=== PATIENT | female | born 1980 ===

== ENCOUNTER 2016-08-18 09:10 | Inpatient (IN) | payer OTHER, SELFPAY ==
[2016-08-18 09:45] VITALS: BMI 25.4
[2016-08-18] MEDS ORDERED: Sodium Chloride 0.9% 1,000 ML IV STA (09:45)
[2016-08-18 10:01] LABS: BASO % 0.5 % (0.0-2.0); EOS # 0.2 K/uL (0.0-0.7); EOS % 2.2 % (0.0-4.0); HEMATOCRIT 34.6 % (34.0-47.0); LYMPH # 3.7 K/uL (1.0-4.3); LYMPH % 37.7 % (20.0-40.0); MEAN CELL VOLUME 86.3 fl (81.0-99.0); MEAN CORPUSCULAR HGB CONC 33.7 g/dL (33.0-37.0); MEAN PLATELET VOLUME 8.1 fl (7.2-11.7); MONO # 0.8 K/uL (0.0-0.8); MONO % 8.4 % (0.0-10.0); NEUT % 51.2 % (50.0-75.0); NRBC % 0.2 % (0.0-0.0); RED CELL DISTRIBUTION WIDTH 15.8 % (11.5-14.5); WHITE BLOOD COUNT 9.7 K/uL (4.8-10.8)
[2016-08-18 10:19] LABS: ALB/GLOB RATIO 1.3 (1.0-2.1); ALKALINE PHOSPHATASE 53 U/L (38-126); ALT/SGPT 32 U/L (9-52); AST/SGOT 24 U/L (14-36); BILIRUBIN,TOTAL 0.8 mg/dl (0.2-1.3); BLOOD UREA NITROGEN 15 mg/dl (7-17); CARBON DIOXIDE 25 mmol/L (22-30); CHLORIDE 103 mmol/L (98-107); GFR AFRICAN-AMERICAN > 60; GLUCOSE,RANDOM 86 mg/dL (65-105); LIPASE 103 U/L (23-300); POTASSIUM 4.2 MMOL/L (3.6-5.0); SODIUM 138 mmol/l (132-148); TOTAL PROTEIN 7.9 G/DL (6.3-8.2)
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
[2016-08-18 10:34] LABS: RBC URINE 71 /hpf (0-3); URINE BACTERIA RARE (<OCC); URINE BILIRUBIN SMALL (NEGATIVE); URINE BLOOD MODERATE (NEGATIVE); URINE COLOR AMBER (YELLOW); URINE GLUCOSE (UA) NEG (Normal); URINE KETONE NEGATIVE (NEGATIVE); URINE LEUKOCYTE ESTERASE NEG Leu/uL (Negative); URINE PROTEIN 100 mg/dL (NEGATIVE); URINE UROBILINOGEN 0.2-1.0 mg/dL (0.2-1.0); WBC URINE 1 /hpf (0-5)
[2016-08-18] MEDS ORDERED: Iohexol 300 100 ML IJ ONE (12:02)
[2016-08-18] MEDS ORDERED: Sodium Chloride 0.9% 50 ML IV ONE (12:02)
--- NOTE | 2016-08-18 13:32 | CT ---
PROCEDURE: CT Abdomen and Pelvis with contrast HISTORY: RLQ pain By history, negative test (concurrent with this examination). COMPARISON: 01/24/2016. CT abdomen and pelvis. 10/31/2015 pelvic ultrasound TECHNIQUE: Contrast dose: Possible, today. Thank Radiation dose: Total exam DLP = mGy-cm. This CT exam was performed using one or more of the following dose reduction techniques: Automated exposure control, adjustment of the mA and/or kV according to patient size, and/or use of iterative reconstruction technique. FINDINGS: LOWER THORAX: Platelike atelectasis at both bases. Otherwise, unremarkable. LIVER: Unremarkable. No gross lesion or ductal dilatation. GALLBLADDER AND BILE DUCTS: Unremarkable. PANCREAS: Unremarkable. No gross lesion or ductal dilatation. SPLEEN: Unremarkable. ADRENALS: Unremarkable. No mass. KIDNEYS AND URETERS: Unremarkable. No hydronephrosis. No solid mass. VASCULATURE: Unremarkable. No aortic aneurysm. BOWEL: Constipation without fecal impaction or obstruction. Similar findings identified on the prior CT scan. APPENDIX: Normal appendix. PERITONEUM: Unremarkable. No free fluid. No free air. LYMPH NODES: Unremarkable. No enlarged lymph nodes. BLADDER: Unremarkable. REPRODUCTIVE: Contrast-enhancing characteristics associated with deformity of right adnexal cyst likely recently ruptured 1.5 cm cysts. Trace free fluid identified in the pelvis/cul de sac. BONES: No acute fracture. OTHER FINDINGS: None. IMPRESSION: No acute findings related to/accounting for the clinical presentation. No evidence of bowel obstruction, appendicitis, colitis or enteritis. Incidental finding(s):Findings suggestive recently ruptured right ovarian cyst. Save
--- NOTE | 2016-08-18 15:37 | US ---
HISTORY: RLQ pain ruptured cyst r/o torsion LMP 07/25/2016. COMPARISON: 10/31/2015 pelvic ultrasound. August 18, 2016. CT abdomen and pelvis. TECHNIQUE: FINDINGS: UTERUS: Measures cm. Normal in size and appearance. No fibroid or other mass lesion seen. ENDOMETRIUM: Measures 12.5 mm in diameter. Endometrial hypertrophy without focal abnormality. CERVIX: No cervical abnormality identified. RIGHT OVARY: Measures 2.8 x 3.9 cm. No solid mass. Normal flow. Multiple subcentimeter follicles. LEFT OVARY: Measures 2.6 x 2.9 cm. No solid mass. Normal flow. Multiple subcentimeter follicles. FREE FLUID: No significant free fluid noted. OTHER FINDINGS: None. IMPRESSION: Negative study for adnexal torsion. No acute/ significant findings identified. Price the concurrent CT is reviewed again the presence of these findings. No new-additional findings identified.
[2016-08-18] MEDS ORDERED: Oxycodone/Acetaminophen 5/325 mg Tab PO STA (15:44)
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
--- NOTE | 2016-08-18 17:27 | CP.PCM.HP ---
History of Present Illness - History of Present Illness History of Present Illness: Hx taken from patient PMD: Dr Sandeep Barreto [facility] 36 y/o F with PMhx of intermittent asthma presented to ED for acute onset abd pain since 3am today. Pain is diffuse but more severe in the RLQ, 6/10 now(10/ 10 before), associated with nausea and subjective fever but not vomiting, diarrhea, palpitations, SOB or CP. Patient also reports Hx of irregular bleeding with out menstrual crampings but this time she defines the pain as crampy. LMP sometimes in July she dosnt recall the date. Also c/o of urinary symptoms in the past few day consisting of frequency but not dysuria, denies hematuria. Patient came to ED 2 days ago c/o sore throat and she was prescribed Amoxicillin which she has been taking. ED course: CBC/BMP WNL CT abd/pelvis: Recently ruptured right ovarian cyst. Thickened R /Urether wall, no stones(please see full report) Transvag US: Neg for torsion. Confirmed CT findings(Please see full report) Sx Consult Morphine IVx3 UA: RBC high, neg for nitrates, WBC 1 Patient decided to admit to hosp for observation and further evaluation Allergies: NKDA Meds: Symbicort(Not in use) PMHx: Asthma, H.Pylori ObHx: . Urine test 2 days ago in ED negative GynHx: irregular periods, LMP in July. SxhX: Denies Present on Admission - Present on Admission Any Indicators Present on Admission: No Review of Systems - Constitutional Constitutional: As Per HPI - Cardiovascular Cardiovascular: absent: Chest Pain, Dyspnea, Palpitations - Respiratory Respiratory: absent: Cough, Wheezing - Gastrointestinal Gastrointestinal: Abdominal Pain, Cramping, Nausea. absent: Diarrhea, Vomiting - Menstruation Menstruation: Other Additional comments: Irregular periods - Musculoskeletal Musculoskeletal: absent: Arthralgias Past Patient History - Past Medical History & Family History Past Medical History?: Yes - Past Social History Alcohol: None - CARDIAC Hx Cardiac Disorders: No - PULMONARY Hx Asthma: Yes (02/13/2016) - NEUROLOGICAL Hx Neurological Disorder: No - HEENT Hx HEENT Problems: No - RENAL Hx Chronic Kidney Disease: No - ENDOCRINE/METABOLIC Hx Endocrine Disorders: No - HEMATOLOGICAL/ONCOLOGICAL Hx Blood Disorders: No - INTEGUMENTARY Hx Dermatological Problems: No - MUSCULOSKELETAL/RHEUMATOLOGICAL Hx Musculoskeletal Disorders: No - GASTROINTESTINAL Hx Gastrointestinal Disorders: No - GENITOURINARY/GYNECOLOGICAL Hx Genitourinary Disorders: No - PSYCHIATRIC Hx Psychophysiologic Disorder: No Hx Emotional Abuse: No Hx Physical Abuse: No Hx Substance Use: No - SURGICAL HISTORY Hx Surgeries: Yes Other/Comment: LAPAROSCOPY AND FACIAL SURGERY IN 1997 - ANESTHESIA Hx Anesthesia: Yes Hx Anesthesia Reactions: No Hx Malignant Hyperthermia: No Meds Allergies/Adverse Reactions: Allergies Allergy/AdvReac Type Severity Reaction Status Date / Time No Known Allergies Allergy Verified 04/11/13 16:24 Physical Exam - Constitutional Appears: Non-toxic, No Acute Distress - Head Exam Head Exam: ATRAUMATIC - Eye Exam Eye Exam: PERRL - ENT Exam ENT Exam: Mucous Membranes Moist - Respiratory Exam Respiratory Exam: Clear to Auscultation Bilateral, NORMAL BREATHING PATTERN. absent: Rales, Wheezes - Cardiovascular Exam Cardiovascular Exam: REGULAR RHYTHM, +S1, +S2. absent: Gallop, Systolic Murmur - GI/Abdominal Exam GI & Abdominal Exam: Normal Bowel Sounds, Soft, Tenderness (diffuse mild tenderness. moderate tenderness in RLQ). absent: Distended, Guarding, Rebound - Extremities Exam Extremities exam: Positive for: normal inspection - Back Exam Back exam: NORMAL INSPECTION. absent: CVA tenderness (L), CVA tenderness (R) - Neurological Exam Neurological exam: Alert, Normal Gait, Oriented x3 - Psychiatric Exam Psychiatric exam: Normal Affect, Normal Mood - Skin Skin Exam: Normal Color, Warm Results - Vital Signs Recent Vital Signs: Last Vital Signs Temp Pulse Resp BP Pulse Ox 98 08/18/16 16:06 - Labs Result Diagrams: 08/18/16 09:56 08/18/16 09:56 Assessment & Plan - Assessment and Plan (Free Text) Assessment: 36 y/o F with PMhx of intermittent asthma and irregular menstrual periods admitted for sudden onset RLQ pain -Acute abdominal pain(most likely ruptured ovarian cyst vs ureter stone) Admit to med-sx CT abd/pelvis: Recently ruptured right ovarian cyst. Thickened R/Ureter wall, no stones seen TV US: Confirmed findings on CT. Negative for torsion Monitor VS WBC WNL, Afebrile F/U repeat CBC tomorrow UCx, Gc/Chl ordered Sx consult: Prob ovarian cyst: Recs FRAME BANDER consult, stool softeners, Toradol for pain control. Stamp Press Operator consult(Dr Tay) will f/u recs NPO for now untill evaluated by Stamp Press Operator BetaHCG, Gc/Chl TMA, UCx ordered Toradol, Percocet, Morphine PRN for pain contro -Intermittent Asthma Albuterol HFA 2 puff Q6h PRN for SOB -Prophylactic measures DVT: SCDs for now
[2016-08-18] MEDS ORDERED: Albuterol HFA 90 mcg/actuation (8 g) INH PRN (18:23)
[2016-08-18] MEDS ORDERED: Oxycodone/Acetaminophen 5/325 mg Tab PO PRN (18:27)
[2016-08-18] MEDS ORDERED: Docusate-Senna 50 mg-8.6 mg Tab PO PRN (18:28)
[2016-08-18] MEDS: Sodium Chloride 0.9% 1,000 ML IV SCH (20:39)
[2016-08-18 22:09] LABS: HEMATOCRIT 31.8 % (34.0-47.0); MEAN CELL VOLUME 87.8 fl (81.0-99.0); MEAN CORPUSCULAR HEMOGLOBIN 28.7 pg (27.0-31.0); MEAN CORPUSCULAR HGB CONC 32.7 g/dL (33.0-37.0); RED CELL DISTRIBUTION WIDTH 15.7 % (11.5-14.5); WHITE BLOOD COUNT 10.1 K/uL (4.8-10.8)
[2016-08-18] MEDS ORDERED: Chlorhexidine Gluconate 1 APPL/PKT TP ONE (23:12)
--- NOTE | 2016-08-18 23:59 | CP.PCM.CON ---
History of Present Illness - History of Present Illness History of Present Illness: INTELLIGENCE INTERN Consult note 36 yo , f, , ect preg x 1 about 20 years ago, PMhx/o Asthma c/o generalized abd pain started today in the morning 6 am, cramp type, intermittent , 10/10 in intensity, radiated to RLQ, associated with nausea w/o vomiting. Patient denies fever, vomiting, diarrhea, dysuria, VB, Vaginal discharge, trauma, chest pain, SOB, odd food, . She reports that was seen in ED 2 days ago for sore throat and was discharged with amoxicillin antibiotic. Patient reports had similar pain 1 year ago, but radiated to left side. PMhx: Asthma Allergies: NKDA Meds: Symbicort(Not in use) PSurgHx: left side ectopic x 1 (20 years ago), facial surgery PFHx: Father alive colon cancer with mets to liver, Mother alive HTN PObHx: ecto preg x 1 .Urine test 2 days ago in ED negative GynHx:menarche at 11 age. LMP: july 24-, regular x 4 days SexHx: Active monogamous with , using condom. SHx: + ETOH occs, neg rect drugs, cig Review of Systems - Gastrointestinal Gastrointestinal: Abdominal Pain, Nausea. absent: Diarrhea, Vomiting - Genitourinary Genitourinary: As Per HPI - Reproductive: Female Reproductive:Female: As Per HPI - Musculoskeletal Musculoskeletal: As Per HPI Past Patient History - Past Medical History & Family History Past Medical History?: Yes - Past Social History Smoking Status: Never Smoked - CARDIAC Hx Cardiac Disorders: No - PULMONARY Hx Asthma: Yes (02/13/2016) - NEUROLOGICAL Hx Neurological Disorder: No - HEENT Hx HEENT Problems: No - RENAL Hx Chronic Kidney Disease: No - ENDOCRINE/METABOLIC Hx Endocrine Disorders: No - HEMATOLOGICAL/ONCOLOGICAL Hx Blood Disorders: No - INTEGUMENTARY Hx Dermatological Problems: No - MUSCULOSKELETAL/RHEUMATOLOGICAL Hx Falls: No - GASTROINTESTINAL Hx Gastrointestinal Disorders: No - GENITOURINARY/GYNECOLOGICAL Hx Genitourinary Disorders: No - PSYCHIATRIC Hx Substance Use: No - SURGICAL HISTORY Hx Surgeries: Yes Other/Comment: LAPAROSCOPY AND FACIAL SURGERY IN 1997 - ANESTHESIA Hx Anesthesia: Yes Hx Anesthesia Reactions: No Hx Malignant Hyperthermia: No Meds Allergies/Adverse Reactions: Allergies Allergy/AdvReac Type Severity Reaction Status Date / Time No Known Allergies Allergy Verified 04/11/13 16:24 - Medications Medications: Current Medications Albuterol (Ventolin Hfa 90 Mcg/Actuation (8 G)) 2 puff INH RQ6 PRN PRN Reason: Shortness of Breath Sodium Chloride (Sodium Chloride 0.9%) 1,000 mls @ 125 mls/hr IV .Q8H MARIA ESTHER Stop: 08/19/16 18:21 Last Admin: 08/18/16 20:39 Dose: 125 mls/hr Ketorolac Tromethamine (Toradol) 15 mg IVP Q6 PRN PRN Reason: Pain, Mild (1-3) Morphine Sulfate (Morphine) 2 mg IVP Q6 PRN PRN Reason: Pain, severe (8-10) Last Admin: 08/18/16 20:38 Dose: 2 mg Ondansetron HCl (Zofran Inj) 4 mg IVP Q6 PRN PRN Reason: Nausea/Vomiting Oxycodone/Acetaminophen (Percocet 5/325 Mg Tab) 2 tab PO Q6 PRN PRN Reason: Pain, moderate (4-7) Stop: 08/21/16 18:28 Senna/Docusate Sodium (Senokot S 50 Mg-8.6 Mg) 1 tab PO HS PRN PRN Reason: Constipation Physical Exam - Constitutional Appears: Non-toxic, No Acute Distress - Head Exam Head Exam: ATRAUMATIC, NORMOCEPHALIC - Eye Exam Eye Exam: Normal appearance - Neck Exam Neck exam: Positive for: Normal Inspection - Respiratory Exam Respiratory Exam: Clear to Auscultation Bilateral. absent: Rales, Rhonchi, Wheezes - Cardiovascular Exam Cardiovascular Exam: REGULAR RHYTHM, +S1, +S2 - GI/Abdominal Exam GI & Abdominal Exam: Normal Bowel Sounds, Tenderness. absent: Guarding, Rebound Additional comments: mild TD suprapubic right side. no guarding, no rebound TD. - Exam Exam: NORMAL INSPECTION Bimanual exam: absent: Adenexal Mass, Cervical Motion Tendernes, Uterine Enlargement, Uterine Tenderness Additional comments: Mild TD to right Adnexal, no swelling, no mass - Extremities Exam Extremities exam: Positive for: normal inspection. Negative for: pedal edema, tenderness - Back Exam Back exam: NORMAL INSPECTION. absent: paraspinal tenderness - Neurological Exam Neurological exam: Alert, Oriented x3 - Psychiatric Exam Psychiatric exam: Normal Affect - Skin Skin Exam: Intact Results - Vital Signs Recent Vital Signs: Last Vital Signs Temp 98.5 F 08/18/16 18:54 Pulse 52 L 08/18/16 18:54 Resp 18 08/18/16 18:54 BP 105/69 08/18/16 18:54 Pulse Ox 100 08/18/16 18:54 - Labs Result Diagrams: 08/18/16 21:21 08/18/16 09:56 Labs: Laboratory Results - last 24 hr 08/18/16 08/18/16 18:24 21:21 WBC 10.1 RBC 3.63 L Hgb 10.4 L Hct 31.8 L MCV 87.8 MCH 28.7 MCHC 32.7 L RDW 15.7 H Plt Count 271 Beta HCG, Quant < 2.39 Assessment & Plan - Assessment and Plan (Free Text) Plan: 36 y/o f, PPMHx/o Asthma admitted with generalized abd pain radiated to RLQ Acute abdominal pain secondary to right ovarian cyst rupture -CT abd/pelvis showed: Recently ruptured right ovarian cyst. Thickened R/Ureter wall, no stones seen -Trasnvaginal US: Confirmed findings on CT. Negative for torsion -VS reviewed: Afebrile, no leukocytosis -CBC Hgb: 11.7 on admission. 10.4 tonight. -Urine cx neg -alarm service technician consult appreciated by Dr Tay. Discharge patient, pelvic rest, F/U INTELLIGENCE INTERN and OCP -Gc/Chlam f/u -Liquid diet -C/w pain meds -Intermittent Asthma Albuterol HFA 2 puff Q6h PRN for SOB -Prophylactic measures DVT: SCDs for now
[2016-08-19] MEDS: Sodium Chloride 0.9% 1,000 ML IV SCH ×2 (04:31→10:32)
[2016-08-19 07:11] LABS: BASO % 0.4 % (0.0-2.0); EOS # 0.3 K/uL (0.0-0.7); EOS % 4.3 % (0.0-4.0); LYMPH % 41.6 % (20.0-40.0); MEAN CELL VOLUME 87.7 fl (81.0-99.0); MEAN CORPUSCULAR HEMOGLOBIN 28.7 pg (27.0-31.0); MEAN CORPUSCULAR HGB CONC 32.8 g/dL (33.0-37.0); MEAN PLATELET VOLUME 8.5 fl (7.2-11.7); MONO # 0.7 K/uL (0.0-0.8); MONO % 9.2 % (0.0-10.0); NEUT # 3.2 K/uL (1.8-7.0); NEUT % 44.5 % (50.0-75.0); RED CELL DISTRIBUTION WIDTH 15.6 % (11.5-14.5); WHITE BLOOD COUNT 7.3 K/uL (4.8-10.8)
--- NOTE | 2016-08-19 12:25 | CP.PCM.DIS ---
Provider - Provider Date of Admission: 08/18/16 18:17 Attending physician: Faye Blas MD Primary care physician: Dr Sandeep Rosales Consults: bioinformatics programmer Dr Tay Surgery Dr Sykes Time Spent in preparation of Discharge (in minutes): 30 Diagnosis - Discharge Diagnosis (1) Ruptured ovarian cyst Status: Acute Comment: Evaluated by Internet Specialist. F/U as outpatient. (2) UTI (urinary tract infection) Status: Acute Comment: DC on Cipro 500mg BID x 7 days Hospital Course - Lab Results Lab Results: Most Recent Lab Values WBC 7.3 K/uL (4.8-10.8) 08/19/16 05:45 RBC 3.65 Mil/uL (3.80-5.20) L 08/19/16 05:45 Hgb 10.5 g/dL (12.0-16.0) L 08/19/16 05:45 Hct 32.0 % (34.0-47.0) L 08/19/16 05:45 MCV 87.7 fl (81.0-99.0) 08/19/16 05:45 MCH 28.7 pg (27.0-31.0) 08/19/16 05:45 MCHC 32.8 g/dL (33.0-37.0) L 08/19/16 05:45 RDW 15.6 % (11.5-14.5) H 08/19/16 05:45 Plt Count 267 K/uL (130-400) 08/19/16 05:45 MPV 8.5 fl (7.2-11.7) 08/19/16 05:45 Neut % (Auto) 44.5 % (50.0-75.0) L 08/19/16 05:45 Lymph % (Auto) 41.6 % (20.0-40.0) H 08/19/16 05:45 Arroyo % (Auto) 9.2 % (0.0-10.0) 08/19/16 05:45 Eos % (Auto) 4.3 % (0.0-4.0) H 08/19/16 05:45 Baso % (Auto) 0.4 % (0.0-2.0) 08/19/16 05:45 Neut # 3.2 K/uL (1.8-7.0) 08/19/16 05:45 Lymph # 3.0 K/uL (1.0-4.3) 08/19/16 05:45 Arroyo # 0.7 K/uL (0.0-0.8) 08/19/16 05:45 Eos # 0.3 K/uL (0.0-0.7) 08/19/16 05:45 Baso # 0.0 K/uL (0.0-0.2) 08/19/16 05:45 Sodium 138 mmol/l (132-148) 08/18/16 09:56 Potassium 4.2 MMOL/L (3.6-5.0) 08/18/16 09:56 Chloride 103 mmol/L (98-107) 08/18/16 09:56 Carbon Dioxide 25 mmol/L (22-30) 08/18/16 09:56 Anion Gap 15 (10-20) 08/18/16 09:56 BUN 15 mg/dl (7-17) 08/18/16 09:56 Creatinine 0.7 mg/dL (0.7-1.2) 08/18/16 09:56 Est GFR ( Amer) > 60 08/18/16 09:56 Est GFR (Non-Af Amer) > 60 08/18/16 09:56 Random Glucose 86 mg/dL (65-105) 08/18/16 09:56 Calcium 9.0 mg/dL (8.4-10.2) 08/18/16 09:56 Total Bilirubin 0.8 mg/dl (0.2-1.3) 08/18/16 09:56 AST 24 U/L (14-36) 08/18/16 09:56 ALT 32 U/L (9-52) 08/18/16 09:56 Alkaline Phosphatase 53 U/L (38-126) 08/18/16 09:56 Total Protein 7.9 G/DL (6.3-8.2) 08/18/16 09:56 Albumin 4.4 g/dL (3.5-5.0) 08/18/16 09:56 Globulin 3.5 gm/dL (2.2-3.9) 08/18/16 09:56 Albumin/Globulin Ratio 1.3 (1.0-2.1) 08/18/16 09:56 Lipase 103 U/L (23-300) 08/18/16 09:56 Beta HCG, Quant < 2.39 mIU/mL 08/18/16 18:24 Urine Color Amita (YELLOW) 08/18/16 10:21 Urine Clarity Slighty-cloudy (Clear) 08/18/16 10:21 Urine pH 5.0 (5.0-8.0) 08/18/16 10:21 Ur Specific Cassel 1.042 (1.003-1.030) H 08/18/16 10:21 Urine Protein 100 mg/dL (NEGATIVE) 08/18/16 10:21 Urine Glucose (UA) Neg mg/dL (Normal) 08/18/16 10:21 Urine Ketones Negative mg/dL (NEGATIVE) 08/18/16 10:21 Urine Blood Moderate (NEGATIVE) 08/18/16 10:21 Urine Nitrate Negative (NEGATIVE) 08/18/16 10:21 Urine Bilirubin Small (NEGATIVE) 08/18/16 10:21 Urine Urobilinogen 0.2-1.0 mg/dL (0.2-1.0) 08/18/16 10:21 Ur Leukocyte Esterase Neg Jemal/uL (Negative) 08/18/16 10:21 Urine RBC (Auto) 71 /hpf (0-3) H 08/18/16 10:21 Urine Microscopic WBC 1 /hpf (0-5) 08/18/16 10:21 Ur Squamous Epith Cells 11 /hpf (0-5) H 08/18/16 10:21 Urine Bacteria Rare (<OCC) 08/18/16 10:21 Hyaline Casts 0-2 /hpf (0-2) 08/18/16 10:21 - Hospital Course Hospital Course: 36 y/o F with PMHx of asthma admitted for acute onset RLQ pain found to have a suspected ruptured R/Ovarian Cyst and Ureter wall thickness with dysuria and UA + for RBCs was admitted to hosp for evaluation yesterday. Patient pain almost resolved completely overnight with pain meds, rest and IV fluids. She was evaluated by Internet Specialist who recommends pain meds and f/u as outpatient for the Ovarian Cyst and no emergent intervention at this time. She was started on PO Cipro for possible UTI, UCx pending and decided to dc home and f/u with PMD at [facility] Discharge meds: Cipro 500mg BID for 7 days(14) Motrin 600mg Q6h PRN for pain(20) Percocet 5/325mg 1 tab Q8h PRN for pain(5) Discharge Exam - Head Exam Head Exam: ATRAUMATIC, NORMOCEPHALIC - Eye Exam Eye Exam: EOMI, PERRL - ENT Exam ENT Exam: Mucous Membranes Moist - Respiratory Exam Respiratory Exam: Clear to PA & Lateral, NORMAL BREATHING PATTERN, UNREMARKABLE - Cardiovascular Exam Cardiovascular Exam: REGULAR RHYTHM, +S1, +S2. absent: Gallop - GI/Abdominal Exam GI & Abdominal Exam: Normal Bowel Sounds, Soft, Tenderness (mild on deep RLQ palpation). absent: Distended, Guarding, Hernia - Neurological Exam Neurological exam: Alert, Normal Gait, Oriented x3 - Psychiatric Exam Psychiatric exam: Normal Affect, Normal Mood - Skin Skin Exam: Normal Color, Warm Discharge Plan - Discharge Medications Prescriptions: Ciprofloxacin HCl [Cipro] 500 mg PO Q12 #14 tablet Ibuprofen [Motrin] 600 mg PO Q6 PRN #20 tab PRN Reason: Pain, Moderate (4-7) oxyCODONE/Acetaminophen [Percocet 5/325 mg Tab] 1 ea PO Q6 PRN #5 tab PRN Reason: Pain, Severe (8-10) - Follow Up Plan Condition: FAIR Disposition: HOME/ ROUTINE Instructions: Ovarian Cyst (DC) Referrals: Mac Orellana MD [Primary Care Provider] -
[2016-08-20 04:36] VITALS: O2SAT 96
[2016-08-20 08:04] VITALS: BP 97/64; PULSE 60; RESP 18; TEMP 98.2
--- NOTE | 2016-08-20 09:57 | CP.PCM.PCO ---
Physician Communication Note - Physician Communication Note Physician Communication Note: Patient stayed overnight for nausea. Ready for DC today. DC Sum yesterday
== END 2016-08-20 11:37 | disposition home or self-care (01) | DRG 369 ==
LOC: H.ER 09:10 → H.EROBSV 14:22 → H.ERHOLD 16:13 → OBSVTOIN 18:17 → INTOOBSV 18:17 → H.MEDSURG1 18:40 → OBSVTOIN 08-19 17:01 → H.MEDSURG1 08-19 20:29
PROVIDERS: ADMIT Family Medicine Geriatric Medicine; ATTEND Family Medicine Geriatric Medicine
DX: N83.201 Unspecified ovarian cyst, right side (principal); N39.0 Urinary tract infection, site not specified; J45.20 Mild intermittent asthma, uncomplicated; K59.00 Constipation, unspecified; K29.70 Gastritis, unspecified, without bleeding

== ENCOUNTER 2016-09-16 07:13 | Emergency (ER) | payer SELFPAY ==
[2016-09-16 07:19] VITALS: BMI 24.4
[2016-09-16 07:21] VITALS: TEMP 98.4
--- NOTE | 2016-09-16 08:10 | ED PDOC ---
HPI: Female Pain Time Seen by Provider: 09/16/16 07:58 Chief Complaint (Nursing): Female Genitourinary Chief Complaint (Provider): dysuria History Per: Patient History/Exam Limitations: no limitations Onset/Duration Of Symptoms: Days (x 1) Current Symptoms Are (Timing): Still Present Additional Complaint(s): Kacie Marin is a 36 year old female, with a previous medical history of ovarian cyst, who presents to the ED with complaints of dysuria and hematuria ongoing for one day. Patient denies any nausea, vomiting, abdominal pain or flank pain. PMD: None provided Past Medical History Reviewed: Historical Data, Nursing Documentation, Vital Signs Vital Signs: Last Vital Signs Temp 98.4 F 09/16/16 07:20 Pulse 54 L 09/16/16 07:20 Resp 18 09/16/16 07:20 BP 92/63 L 09/16/16 07:20 Pulse Ox 99 09/16/16 07:20 - Medical History PMH: Asthma (02/13/2016) Denies: Chronic Kidney Disease - Surgical History Other surgeries: laparoscopy - Family History Family History: States: Unknown Family Hx - Home Medications Home Medications: Ambulatory Orders Medication Instructions Recorded Amoxicillin [Amoxil 500 mg Cap] 500 mg PO TID #30 cap 08/16/16 Ciprofloxacin HCl [Cipro] 500 mg PO Q12 #14 tablet 08/19/16 Ibuprofen [Motrin] 600 mg PO Q6 PRN #20 tab 08/19/16 traMADol [Ultram] 50 mg PO Q6 #5 tab 08/20/16 Naproxen [Naprosyn] 500 mg PO BID PRN #15 tablet 09/16/16 - Allergies Allergies/Adverse Reactions: Allergies Allergy/AdvReac Type Severity Reaction Status Date / Time No Known Allergies Allergy Verified 09/16/16 07:47 Review of Systems ROS Statement: Except As Marked, All Systems Reviewed And Found Negative Constitutional: Negative for: Fever, Chills Gastrointestinal: Negative for: Nausea, Vomiting, Abdominal Pain Genitourinary Female: Positive for: Dysuria, Hematuria. Negative for: Pelvic Pain Musculoskeletal: Negative for: Back Pain Physical Exam - Reviewed Nursing Documentation Reviewed: Yes Vital Signs Reviewed: Yes - Physical Exam Appears: Positive for: Well, Non-toxic, No Acute Distress Head Exam: Positive for: ATRAUMATIC, NORMAL INSPECTION, NORMOCEPHALIC Skin: Positive for: Normal Color, Warm, Dry Cardiovascular/Chest: Positive for: Regular Rate, Rhythm Respiratory: Positive for: CNT, Normal Breath Sounds Gastrointestinal/Abdominal: Positive for: Bowel Sounds, Soft, Tenderness (mild suprapubic ) Back: Positive for: Normal Inspection. Negative for: L CVA Tenderness, R CVA Tenderness Neurologic/Psych: Positive for: Alert, Oriented - Laboratory Results Urine POC: Negative Urine dip results: Positive for: Blood, Protein (Trace). Negative for: Leukocyte Esterase, Nitrate, Ketones, Glucose, Bilirubin - ECG O2 Sat by Pulse Oximetry: 99 (RA) Pulse Ox Interpretation: Normal - Progress ED Course And Treament: 3 mm dark brown sediment found in urine, sent to the lab for analysis. Medical Decision Making Medical Decision Making: Initial Impression: UTI Initial Plan: * urinalysis * urine culture * reevaluation Scribe Attestation: Documented by Alexandrea Chang, acting as a scribe for Alexandrea Flores MD. Provider Scribe Attestation: All medical record entries made by the Scribe were at my direction and personally dictated by me. I have reviewed the chart and agree that the record accurately reflects my personal performance of the history, physical exam, medical decision making, and the department course for this patient. I have also personally directed, reviewed, and agree with the discharge instructions and disposition. Disposition - Clinical Impression Clinical Impression: Dysuria - Disposition Referrals: LTAC[facility] within [facility] [Outside] Condition: STABLE Prescriptions: Naproxen [Naprosyn] 500 mg PO BID PRN #15 tablet PRN Reason: Pain, Moderate (4-7) Instructions: Dysuria (ED)
[2016-09-16 08:50] LABS: RBC URINE 12 /hpf (0-3); URINE BACTERIA RARE (<OCC); URINE BILIRUBIN NEGATIVE (NEGATIVE); URINE BLOOD MODERATE (NEGATIVE); URINE COLOR YELLOW (YELLOW); URINE GLUCOSE (UA) NEG (Normal); URINE KETONE NEGATIVE (NEGATIVE); URINE LEUKOCYTE ESTERASE NEG Leu/uL (Negative); URINE PROTEIN NEGATIVE (NEGATIVE); URINE UROBILINOGEN 0.2-1.0 mg/dL (0.2-1.0); WBC URINE 1 /hpf (0-5)
[2016-09-16 10:31] VITALS: BP 113/70; PULSE 72; RESP 16; O2SAT 98
== END 2016-09-16 10:31 | disposition home or self-care (01) ==
LOC: H.ER 07:13
DX: R30.0 Dysuria (principal); N83.209 Unspecified ovarian cyst, unspecified side; R31.9 Hematuria, unspecified; N39.0 Urinary tract infection, site not specified

== ENCOUNTER 2016-11-13 17:46 | Emergency (ER) | payer SELFPAY ==
[2016-11-13 17:46] VITALS: BMI 24.4
[2016-11-13 17:58] VITALS: BP 135/80; PULSE 71; RESP 16; TEMP 98.1; O2SAT 100
--- NOTE | 2016-11-13 18:38 | ED PDOC ---
HPI: Abdomen Time Seen by Provider: 11/13/16 18:02 Chief Complaint (Nursing): Female Genitourinary Chief Complaint (Provider): Groin pain, nausea, headache History Per: Patient Additional Complaint(s): Pt. is a 36 yo female,PMH of Asthma, presents to ED with complaints of "groin pain x 3 weeks, worst on the left groin area, pain worst with movement, also with accompanying nausea and headache." Of note: Preg done in triage, (+) Pt was unaware. Past Medical History Reviewed: Nursing Documentation, Vital Signs Vital Signs: Last Vital Signs Temp 98.1 F 11/13/16 17:57 Pulse 71 11/13/16 17:57 Resp 16 11/13/16 17:57 BP 135/80 11/13/16 17:57 Pulse Ox 100 11/13/16 18:50 - Medical History PMH: Asthma (02/13/2016) Denies: Chronic Kidney Disease - Surgical History Surgical History: No Surg Hx - Family History Family History: States: Unknown Family Hx - Living Arrangements Living Arrangements: With Family - Social History Current smoker - smoking cessation education provided: No Alcohol: None Drugs: Denies - Home Medications Home Medications: Ambulatory Orders Medication Instructions Recorded Amoxicillin [Amoxil 500 mg Cap] 500 mg PO TID #30 cap 08/16/16 Ciprofloxacin HCl [Cipro] 500 mg PO Q12 #14 tablet 08/19/16 Ibuprofen [Motrin] 600 mg PO Q6 PRN #20 tab 08/19/16 traMADol [Ultram] 50 mg PO Q6 #5 tab 08/20/16 Naproxen [Naprosyn] 500 mg PO BID PRN #15 tablet 09/16/16 - Allergies Allergies/Adverse Reactions: Allergies Allergy/AdvReac Type Severity Reaction Status Date / Time No Known Allergies Allergy Verified 09/16/16 07:47 Review of Systems ROS Statement: Except As Marked, All Systems Reviewed And Found Negative Gastrointestinal: Positive for: Nausea Musculoskeletal: Positive for: Other (groin pain) Neurological: Positive for: Headache Physical Exam - Reviewed Nursing Documentation Reviewed: Yes Vital Signs Reviewed: Yes - Physical Exam Appears: Positive for: Well, Non-toxic, No Acute Distress Head Exam: Positive for: ATRAUMATIC, NORMAL INSPECTION, NORMOCEPHALIC Skin: Positive for: Normal Color, Warm, DRY Eye Exam: Positive for: EOMI, Normal appearance, PERRL ENT: Positive for: Normal ENT Inspection Neck: Positive for: Normal, Painless ROM Cardiovascular/Chest: Positive for: Regular Rate, Rhythm Respiratory: Positive for: CNT, Normal Breath Sounds Gastrointestinal/Abdominal: Positive for: Normal Exam, Bowel Sounds, Soft Back: Positive for: Normal Inspection Extremity: Positive for: Normal ROM. Negative for: Tenderness Neurologic/Psych: Positive for: Alert, Oriented - Laboratory Results Result Diagrams: 11/13/16 18:54 11/13/16 18:54 - ECG O2 Sat by Pulse Oximetry: 100 Medical Decision Making Medical Decision Making: Preg (+) Pt made aware. Pt medicated with IV Pepcid, Zofran and IVF. Further diagnostics ordered CBC and COMP resulted WNL UA resulted WNL Beta and US pending. Case endorsed to MARÍA Cortez at 20:00 pending diagnostic review and re-eval Disposition - Clinical Impression Clinical Impression: - Patient ED Disposition Is Patient to be Admitted: Transfer of Care ([facility]) - Disposition Disposition: Transfer of Care ([facility]) Disposition Time: 19:50 Condition: STABLE Forms: [employer] (Pashto)
[2016-11-13 19:24] LABS: BASO # 0.1 K/uL (0.0-0.2); BASO % 0.7 % (0.0-2.0); EOS # 0.3 K/uL (0.0-0.7); EOS % 3.8 % (0.0-4.0); HEMOGLOBIN 11.3 g/dL (12.0-16.0); LYMPH # 2.6 K/uL (1.0-4.3); LYMPH % 30.2 % (20.0-40.0); MEAN CELL VOLUME 88.3 fl (81.0-99.0); MEAN CORPUSCULAR HGB CONC 32.9 g/dL (33.0-37.0); MEAN PLATELET VOLUME 8.8 fl (7.2-11.7); MONO # 0.8 K/uL (0.0-0.8); MONO % 8.9 % (0.0-10.0); NEUT # 4.9 K/uL (1.8-7.0); NEUT % 56.4 % (50.0-75.0); RBC 3.88 Mil/uL (3.80-5.20); RED CELL DISTRIBUTION WIDTH 15.1 % (11.5-14.5); WHITE BLOOD COUNT 8.7 K/uL (4.8-10.8)
[2016-11-13 19:30] LABS: ALB/GLOB RATIO 1.3 (1.0-2.1); ALBUMIN 4.3 g/dL (3.5-5.0); ALT/SGPT 26 U/L (9-52); AMYLASE 107 U/L (30-110); AST/SGOT 24 U/L (14-36); BLOOD UREA NITROGEN 12 mg/dl (7-17); CALCIUM 9.8 mg/dL (8.4-10.2); GFR AFRICAN-AMERICAN > 60; GFR NON-AFRICAN AMERICAN > 60; LIPASE 155 U/L (23-300)
[2016-11-13 19:32] LABS: SQUAMOUS EPITHIAL 8 /hpf (0-5); URINE BACTERIA RARE (<OCC); URINE BILIRUBIN NEGATIVE (NEGATIVE); URINE BLOOD SMALL (NEGATIVE); URINE CLARITY SLIGHTY-CLOUDY (Clear); URINE COLOR YELLOW (YELLOW); URINE GLUCOSE (UA) NEG (Normal); URINE LEUKOCYTE ESTERASE NEG Leu/uL (Negative); URINE NITRATE NEGATIVE (NEGATIVE); URINE PROTEIN NEGATIVE (NEGATIVE); URINE UROBILINOGEN 0.2-1.0 mg/dL (0.2-1.0)
--- NOTE | 2016-11-13 21:20 | US ---
EXAM: US , Transvaginal CLINICAL HISTORY: 36 years old, female; Pain; Other: Pelvic pain; Gestational age or lmp: 10/13/16; Additional info: Preg, unknown lmp, pelvic pain; beta hCG is 5111.6 TECHNIQUE: Real-time transvaginal obstetrical ultrasound of the maternal pelvis and a first trimester with image documentation. Transvaginal imaging was used for better evaluation of the fetus and adnexa. EXAM DATE/TIME: 11/13/2016 6:47 PM COMPARISON: CT - ABD PELVIS IV CONTRAST ONLY 08/18/2016 12:10:50 PM FINDINGS: Gestation: There is a small saclike structure in the endometrium with mean diameter approximately 3.7 mm. Uterus: Uterus measures approximately 7.7 x 4.5 x 6.6 cm. Endometrium measures approximately 19.8 mm in width. Ovaries: Right ovary measures approximately 2.85 x 1.65 x 2.81 cm. There are multiple follicles in the right ovary. Left ovary measures approximately 2.12 x 1.78 x 1.99 cm. There is a corpus luteum in the left ovary. There is flow in both ovaries on Doppler imaging. Free fluid: There is no free fluid. IMPRESSION: Findings suggest intrauterine gestation too early to date; no ectopic gestation identified Followup imaging and beta hCG levels advised
--- NOTE | 2016-11-13 21:24 | ED PDOC ---
- Laboratory Results Result Diagrams: 11/13/16 18:54 11/13/16 18:54 - ECG O2 Sat by Pulse Oximetry: 100 - Progress ED Course And Treament: Case endorsed to telegraphic typewriter installer from [facility]rina DANIEL pending labs, u/s EXAM: US , Transvaginal CLINICAL HISTORY: 36 years old, female; Pain; Other: Pelvic pain; Gestational age or lmp: 10/13/16 ; Additional info: Preg, unknown lmp, pelvic pain; beta hCG is 5111.6 TECHNIQUE: Real-time transvaginal obstetrical ultrasound of the maternal pelvis and a first trimester with image documentation. Transvaginal imaging was used for better evaluation of the fetus and adnexa. EXAM DATE/TIME: 11/13/2016 6:47 PM COMPARISON: CT - ABD PELVIS IV CONTRAST ONLY 08/18/2016 12:10:50 PM FINDINGS: Gestation: There is a small saclike structure in the endometrium with mean diameter approximately 3.7 mm. Uterus: Uterus measures approximately 7.7 x 4.5 x 6.6 cm. Endometrium measures approximately 19.8 mm in width. Ovaries: Right ovary measures approximately 2.85 x 1.65 x 2.81 cm. There are multiple follicles in the right ovary. Left ovary measures approximately 2.12 x 1.78 x 1.99 cm. There is a corpus luteum in the left ovary. There is flow in both ovaries on Doppler imaging. Free fluid: There is no free fluid. IMPRESSION: Findings suggest intrauterine gestation too early to date; no ectopic gestation identified Followup imaging and beta hCG levels advised Patient educated on findings, advised follow up Finish Off Operator 2 days. Return to ED for worsening/concerning symptoms. Disposition - Clinical Impression Clinical Impression: - POA Present On Arrival: None - Disposition Disposition: Routine/Home Disposition Time: 21:23 Condition: STABLE Instructions: (ED)
== END 2016-11-13 21:36 | disposition home or self-care (01) ==
LOC: H.ER 17:46
DX: O26.891 Other specified pregnancy related conditions, first trimester (principal); R51 Headache

== ENCOUNTER 2016-12-18 22:21 | Emergency (ER) | payer SELFPAY ==
[2016-12-18 22:22] VITALS: BMI 24.4
[2016-12-18 22:40] VITALS: BP 136/91; PULSE 77; RESP 18; TEMP 98.7; O2SAT 99
--- NOTE | 2016-12-18 23:24 | ED PDOC ---
HPI: Female Pain Time Seen by Provider: 12/18/16 22:44 Chief Complaint (Nursing): Female Genitourinary Chief Complaint (Provider): Pelvic pain and vaginal bleeding in History Per: Patient History/Exam Limitations: no limitations Onset/Duration Of Symptoms: Days (1) Current Symptoms Are (Timing): Still Present Severity: Moderate Quality Of Discomfort: "Pain" Associated Symptoms: denies: Fever, Chills, Nausea, Vomiting, Diarrhea, Loss Of Appetite, Back Pain, Chest Pain, Constipation Alleviating Factors: None Additional History Per: Patient Additional Complaint(s): 36 y/o, , 9 week female complaining of pelvic discomfort and vaginal spotting x1 day. She complains of small amounts of blood on the tissue after wiping. No clots. No associated cough, fever, shortness of breath, chest pain, or other complaint. Abnormal Vaginal Bleeding: Yes : 4 Para: 3 Past Medical History Vital Signs: Last Vital Signs Temp 98.7 F 12/18/16 22:37 Pulse 77 12/18/16 22:37 Resp 18 12/18/16 22:37 BP 136/91 H 12/18/16 22:37 Pulse Ox 99 12/18/16 22:37 - Medical History PMH: Asthma (02/13/2016) Denies: Chronic Kidney Disease - Family History Family History: States: No Known Family Hx - Home Medications Home Medications: Ambulatory Orders Medication Instructions Recorded Amoxicillin [Amoxil 500 mg Cap] 500 mg PO TID #30 cap 08/16/16 Ciprofloxacin HCl [Cipro] 500 mg PO Q12 #14 tablet 08/19/16 Ibuprofen [Motrin] 600 mg PO Q6 PRN #20 tab 08/19/16 traMADol [Ultram] 50 mg PO Q6 #5 tab 08/20/16 Naproxen [Naprosyn] 500 mg PO BID PRN #15 tablet 09/16/16 - Allergies Allergies/Adverse Reactions: Allergies Allergy/AdvReac Type Severity Reaction Status Date / Time No Known Allergies Allergy Verified 09/16/16 07:47 Review of Systems ROS Statement: Except As Marked, All Systems Reviewed And Found Negative Gastrointestinal: Positive for: Abdominal Pain Genitourinary Female: Positive for: Vaginal Bleeding Physical Exam - Reviewed Nursing Documentation Reviewed: Yes Vital Signs Reviewed: Yes - Physical Exam Appears: Positive for: Well, Non-toxic, No Acute Distress Head Exam: Positive for: ATRAUMATIC, NORMAL INSPECTION, NORMOCEPHALIC Skin: Positive for: Normal Color, Warm, DRY Eye Exam: Positive for: EOMI, Normal appearance, PERRL ENT: Positive for: Normal ENT Inspection Neck: Positive for: Normal, Painless ROM Cardiovascular/Chest: Positive for: Regular Rate, Rhythm Respiratory: Positive for: CNT, Normal Breath Sounds Gastrointestinal/Abdominal: Positive for: Normal Exam, Bowel Sounds, Soft Back: Positive for: Normal Inspection Extremity: Positive for: Normal ROM Neurologic/Psych: Positive for: Alert, Oriented - Laboratory Results Result Diagrams: 12/18/16 00:00 - ECG O2 Sat by Pulse Oximetry: 99 (RA) Pulse Ox Interpretation: Normal Medical Decision Making Medical Decision Making: Impression: 36 y/o female with bleeding and pelvic pain in the setting of early . Plan: - US - Labs [facility] Final Radiology Report Call: [phone] assistance Online chat: [email or web address] Patient Name: ELISA SOTO (Age): 1980 36 Gender: F Date of Exam: 12/18/2016 Referring Physician: Julian Rothman # of Images: [phone] Ordered As: US OB TRANSVAGINAL Page 1 of 2 EXAM: US First Trimester, Transabdominal CLINICAL HISTORY: 36 years old, female; Pain; complicated by abdominal or pelvic pain; Right lower quadrant; First trimester; Gestational age or lmp: 9weeks; ; Additional info: Preg vag bld TECHNIQUE: Real-time transabdominal obstetrical ultrasound of the maternal pelvis and a first trimester with image documentation. COMPARISON: No relevant prior studies available. FINDINGS: Gestation: Single live intrauterine gestation. heart rate of 169 beats per minute. [place] [address]-rump length of 3.3 cm, correlating with gestational age of 10 weeks 1 day. Uterus/cervix: No subchorionic hemorrhage. No cervical dilatation or effacement. Ovaries: RIGHT ovary: Normal. LEFT ovary: Not visualized. No adnexal masses. Free fluid: No significant free fluid. IMPRESSION: 1. Single live intrauterine gestation. EXAM: US , Transvaginal CLINICAL HISTORY: 36 years old, female; Pain; complicated by abdominal or pelvic pain; Right lower quadrant; First trimester; Gestational age or lmp: 9weeks; ; Additional info: Preg vag bld TECHNIQUE: Real-time transvaginal obstetrical ultrasound of the maternal pelvis and a first trimester with image documentation. Transvaginal imaging was used for better evaluation of the fetus and adnexa. COMPARISON: ELISA SOTO | Final Radiology Report CONFIDENTIALITY STATEMENT This report is intended only for use by the referring physician, and only in accordance with law. If you received this in error, call [phone]. Page 2 of 2 No relevant prior studies available. FINDINGS: Gestation: Single live intrauterine gestation. heart rate of 169 beats per minute. [address] [address]-rump length of 3.3 cm, correlating with gestational age of 10 weeks 1 day. Uterus/cervix: No subchorionic hemorrhage. No cervical dilatation or effacement. Ovaries: RIGHT ovary: Normal. LEFT ovary: Not visualized. No adnexal masses. Free fluid: No significant free fluid. IMPRESSION: 1. Single live intrauterine gestation. Thank you for allowing us to participate in the care of your patient. Dictated and Authenticated by: Naren Inman MD 12/19/2016 1:53 AM Eastern Time ([place] & [place]) 01:00: labs revealed no clinically significant findings. Recommended pelvic rest and follow up with VEGETABLE WASHING MACHINE OPERATOR in the next 2-3 days. Scribe Attestation: Documented by Marcela Chin, acting as a scribe for Julian Rothman MD Provider Scribe Attestation: All medical record entries made by the Scribe were at my direction and personally dictated by me. I have reviewed the chart and agree that the record accurately reflects my personal performance of the history, physical exam, medical decision making, and the department course for this patient. I have also personally directed, reviewed, and agree with the discharge instructions and disposition. Disposition - Clinical Impression Clinical Impression: Threatened miscarriage - Patient ED Disposition Is Patient to be Admitted: No Doctor Will See Patient In The: Office Counseled Patient/Family Regarding: Studies Performed, Diagnosis, Need For Followup - Disposition Disposition: Routine/Home Disposition Time: 01:00 Condition: STABLE Additional Instructions: Please follow up in 48-72 hours with your Lube Attendant Instructions: First Trimester Vaginal Bleed (ED) Forms: [employer] (Citizen [place])
[2016-12-19 00:04] LABS: BASO # 0.1 K/uL (0.0-0.2); BASO % 0.6 % (0.0-2.0); EOS # 0.4 K/uL (0.0-0.7); HEMATOCRIT 33.5 % (34.0-47.0); LYMPH # 3.2 K/uL (1.0-4.3); LYMPH % 32.2 % (20.0-40.0); MEAN CORPUSCULAR HEMOGLOBIN 29.1 pg (27.0-31.0); MEAN CORPUSCULAR HGB CONC 33.1 g/dL (33.0-37.0); MEAN PLATELET VOLUME 8.6 fl (7.2-11.7); MONO # 0.9 K/uL (0.0-0.8); MONO % 9.4 % (0.0-10.0); NEUT # 5.3 K/uL (1.8-7.0); NEUT % 53.8 % (50.0-75.0); RED CELL DISTRIBUTION WIDTH 15.5 % (11.5-14.5); WHITE BLOOD COUNT 9.9 K/uL (4.8-10.8)
[2016-12-19 00:11] LABS: RBC URINE 1 /hpf (0-3); URINE BILIRUBIN NEGATIVE (NEGATIVE); URINE BLOOD MODERATE (NEGATIVE); URINE COLOR STRAW (YELLOW); URINE GLUCOSE (UA) NEG (Normal); URINE KETONE NEGATIVE (NEGATIVE); URINE LEUKOCYTE ESTERASE TRACE Leu/uL (Negative); URINE PROTEIN NEGATIVE (NEGATIVE); URINE UROBILINOGEN 0.2-1.0 mg/dL (0.2-1.0); WBC URINE 2 /hpf (0-5)
--- NOTE | 2016-12-19 01:54 | US ---
EXAM: US First Trimester, Transabdominal CLINICAL HISTORY: 36 years old, female; Pain; complicated by abdominal or pelvic pain; Right lower quadrant; First trimester; Gestational age or lmp: 9weeks; ; Additional info: Preg vag bld TECHNIQUE: Real-time transabdominal obstetrical ultrasound of the maternal pelvis and a first trimester with image documentation. COMPARISON: No relevant prior studies available. FINDINGS: Gestation: Single live intrauterine gestation. heart rate of 169 beats per minute. Tow-rump length of 3.3 cm, correlating with gestational age of 10 weeks 1 day. Uterus/cervix: No subchorionic hemorrhage. No cervical dilatation or effacement. Ovaries: RIGHT ovary: Normal. LEFT ovary: Not visualized. No adnexal masses. Free fluid: No significant free fluid. IMPRESSION: 1. Single live intrauterine gestation. EXAM: US , Transvaginal CLINICAL HISTORY: 36 years old, female; Pain; complicated by abdominal or pelvic pain; Right lower quadrant; First trimester; Gestational age or lmp: 9weeks; ; Additional info: Preg vag bld TECHNIQUE: Real-time transvaginal obstetrical ultrasound of the maternal pelvis and a first trimester with image documentation. Transvaginal imaging was used for better evaluation of the fetus and adnexa. COMPARISON: No relevant prior studies available. FINDINGS: Gestation: Single live intrauterine gestation. heart rate of 169 beats per minute. Tow-rump length of 3.3 cm, correlating with gestational age of 10 weeks 1 day. Uterus/cervix: No subchorionic hemorrhage. No cervical dilatation or effacement. Ovaries: RIGHT ovary: Normal. LEFT ovary: Not visualized. No adnexal masses. Free fluid: No significant free fluid.
== END 2016-12-19 02:31 | disposition home or self-care (01) ==
LOC: H.ER 22:21
DX: O20.0 Threatened abortion (principal); Z3A.09 9 weeks gestation of pregnancy

== ENCOUNTER 2017-04-02 14:19 | Emergency (ER) | payer SELFPAY ==
--- NOTE | 2017-04-02 14:48 | ED PDOC ---
HPI: SOB/CHF/COPD Time Seen by Provider: 04/02/17 14:26 Chief Complaint (Nursing): Shortness Of Breath Chief Complaint (Provider): Shortness Of Breath History Per: Patient History/Exam Limitations: no limitations Onset/Duration Of Symptoms: Hrs Current Symptoms Are (Timing): Better Additional Complaint(s): Kacie Marin is a 37 year old female with a history of asthma and is 24 weeks that presents to the ED with a chief complaint of developing shortness of breath after chasing after her [employer] in cold weather. Patient additionally reports tightening of abdomen. She denies any vaginal bleeding, leakage, or chest pain. Patient states that her shortness of breath has improved after being in ED. Past Medical History Reviewed: Historical Data, Nursing Documentation, Vital Signs Vital Signs: Last Vital Signs Temp Pulse 76 04/02/17 14:30 Resp 16 04/02/17 14:30 BP 129/74 04/02/17 14:30 Pulse Ox 92 L 04/02/17 14:51 - Medical History PMH: Asthma (02/13/2016) Denies: Chronic Kidney Disease - Family History Family History: States: Unknown Family Hx - Home Medications Home Medications: Ambulatory Orders Medication Instructions Recorded Amoxicillin [Amoxil 500 mg Cap] 500 mg PO TID #30 cap 08/16/16 Ciprofloxacin HCl [Cipro] 500 mg PO Q12 #14 tablet 08/19/16 Ibuprofen [Motrin] 600 mg PO Q6 PRN #20 tab 08/19/16 traMADol [Ultram] 50 mg PO Q6 #5 tab 08/20/16 Naproxen [Naprosyn] 500 mg PO BID PRN #15 tablet 09/16/16 - Allergies Allergies/Adverse Reactions: Allergies Allergy/AdvReac Type Severity Reaction Status Date / Time No Known Allergies Allergy Verified 09/16/16 07:47 Review of Systems Cardiovascular: Negative for: Chest Pain Respiratory: Positive for: Shortness of Breath Gastrointestinal: Positive for: Other ("abdominal tightness") Genitourinary Female: Negative for: Vaginal Bleeding, Other (denies vaginal leakage) Physical Exam - Reviewed Nursing Documentation Reviewed: Yes Vital Signs Reviewed: Yes - Physical Exam Appears: Positive for: Non-toxic, No Acute Distress Head Exam: Positive for: ATRAUMATIC Skin: Positive for: Normal Color, Warm Eye Exam: Positive for: Normal appearance, EOMI, PERRL Cardiovascular/Chest: Positive for: Regular Rate, Rhythm. Negative for: Murmur Respiratory: Positive for: Normal Breath Sounds (Lung sounds clear b/l). Negative for: Respiratory Distress Gastrointestinal/Abdominal: Positive for: Normal Exam, Other (Abdomen is gravid) . Negative for: Tenderness Extremity: Positive for: Normal ROM. Negative for: Tenderness, Swelling Neurologic/Psych: Positive for: Alert, Oriented. Negative for: Motor/Sensory Deficits - ECG O2 Sat by Pulse Oximetry: 92 (RA) Pulse Ox Interpretation: Normal Medical Decision Making Medical Decision Making: Impression: Asthma/ Plan: * Patient reports improvement of symptoms after coming to ED. Referred patient to OB for monitoring. Stable for discharge. Scribe Attestation: Documented by Adrienne Lama, acting as a scribe for Esteban Nicholas MD. Provider Scribe Attestation: All medical record entries made by the Scribe were at my direction and personally dictated by me. I have reviewed the chart and agree that the record accurately reflects my personal performance of the history, physical exam, medical decision making, and the department course for this patient. I have ao personally directed, reviewed, and agree with the discharge instructions and disposition. Disposition - Clinical Impression Clinical Impression: Asthma, - Disposition Disposition: Routine/Home Disposition Time: 14:50 Condition: FAIR Additional Instructions: Referred to Ob for monitoring Instructions: (ED), Asthma (ED) Forms: [employer] (Turkmen)
[2017-04-02 14:53] VITALS: RESP 18
[2017-04-02 21:19] VITALS: BP 93/71; PULSE 74; TEMP 97.3; O2SAT 100
--- NOTE | 2017-04-03 09:26 | CARD ---
APPROVED REPORT EKG Measurement Heart [id number] <Conclusion> Normal sinus rhythm Normal ECG
== END 2017-04-02 17:10 | disposition home or self-care (01) ==
LOC: H.EROB2 14:19 → H.L&D 14:58 → H.EROB2 17:10
DX: O99.512 Diseases of the respiratory system complicating pregnancy, second trimester (principal); J45.909 Unspecified asthma, uncomplicated; Z3A.24 24 weeks gestation of pregnancy

== ENCOUNTER 2017-04-21 19:08 | Emergency (ER) | payer SELFPAY ==
[2017-04-21 19:56] VITALS: BMI 25.1
[2017-04-21 20:47] LABS: URINE BACTERIA RARE (<OCC)
[2017-04-21 21:11] LABS: URINE CLARITY SLIGHT-CLOUDY (Clear); URINE COLOR YELLOW (YELLOW); URINE GLUCOSE (UA) NEGATIVE (Normal)
[2017-04-21 21:12] LABS: PH,URINE 7 (5.0-8.0); URINE BILIRUBIN NEGATIVE (NEGATIVE); URINE BLOOD NEGATIVE (NEGATIVE); URINE LEUKOCYTE ESTERASE NEGATIVE Leu/uL (Negative); URINE NITRATE NEGATIVE (NEGATIVE); URINE PROTEIN NEGATIVE (NEGATIVE)
[2017-04-21 21:13] LABS: SQUAMOUS EPITHIAL 9 /hpf (0-5); URINE OTHER CASTS MUC /hpf
--- NOTE | 2017-04-21 21:21 | US ---
EXAM: US Uterus, Limited CLINICAL HISTORY: 37 years old, female; Pain; Abdominal pain; Other: General abd pain TECHNIQUE: Real-time ultrasound of the maternal uterus (limited) with image documentation. COMPARISON: No relevant prior studies available. FINDINGS: Cervix: No cervical dilatation or effacement. Cervical length = 5.2 cm. IMPRESSION: 1.No acute findings.
[2017-04-22 03:38] VITALS: BP 113/64; PULSE 72; RESP 18; TEMP 98.1; O2SAT 100
--- NOTE | 2017-04-22 06:56 | OBHP ---
Datetime: 04/21/2017 20:09 IP Adm Impression: , intrauterine ; No Active Labor IP Admit Plan: Observation/Evaluation; Discharge home Admit Comment, IP Provider: 37 yo F IUP 28 weeks c/o low abdominal pain cramping, since thi s morning radiated to both hips no related with any particular event. Started gradually. Denies vb, l of, ctx,+FM, no urinary symptoms, recent fever nausea or vomiting. PNC: CFH PObH: NVD x3, Ectopic x1 1997. PGyn: none PMH: Asthma FMH: none PSH: Laparoscopy 1997 SH: -etoh, tobacco, drugs. NKDA Meds: PNV VS: wnl Pelvic: closed/long/high A/P: 37 yo F IUP 28 weeks with abdominal pain, no active labor. Tv US cervical length: 5cm/closed UA normal Tylenol PO /maternal monitoring Observation Reeval: Patient discharge home, feels less pain. Case discussed with Dr Lenny [facility]ud[facility]. This patient was seen by me after exam by PGY1...agree with note...UA neg/ CLM 5cm MAHNDO Pelvic Type - PN: Adequate Extremities - PN: Normal Abdomen - PN: Normal Back - PN: Normal Breast - PN: Not Done Lungs - PN: Normal Heart - PN: Normal Thyroid - PN: Normal Neurologic - PN: Normal HEENT - PN: Normal General - PN: Normal FHR - Baseline A Provider: 140 Membranes, Provider: Intact Contraction Comments Provider: none EGA AdmitDate IP: 27.6 Vital Signs Provider: Reviewed IP Chief Complaint: Maternal discomfort NICHD Variability Prov Fetus A: Moderate 6-25bpm NICHD Accel Fetus A IP Provider: 15X15 FHR Category Provider Fetus A: Category I NICHD Decel Fetus A IP Provider: None Dilatation, Provider: 0 Effacement, Provider: 0 Station, Provider: High Genitourinary Exam: Normal DTRs - PN: Not Done Datetime: 04/02/2017 15:54 IP Chief Complaint Other: tense abdomen Comments, ACOG Physical Exam: B/L erythematous maculopapular rash on inner thighs. No signs of infec tion. IP Hx Assessment: The History has been Reviewed and is Current
--- NOTE | 2017-04-22 06:58 | OBDCSUM ---
Datetime: 04/21/2017 21:20 Discharged to, Provider: Home Follow up at, Provider: [facility] Disch Instr Activity: Normal activity Disch Instr Diet: Regular Discharge Time: 04/21/2017 20:20 Follow up in weeks, Provider: 04/23/2017 as scheduled Disch Referrals: None Discharge Diagnosis Prov Other: Abd pain 27w - not in labor
== END 2017-04-21 21:40 | disposition home or self-care (01) ==
LOC: H.EROB2 19:08
DX: O26.93 Pregnancy related conditions, unspecified, third trimester (principal); R10.2 Pelvic and perineal pain; O09.13 Supervision of pregnancy with history of ectopic pregnancy, third trimester; Z3A.28 28 weeks gestation of pregnancy; J45.909 Unspecified asthma, uncomplicated

== ENCOUNTER 2017-07-01 09:16 | Emergency (ER) | payer SELFPAY ==
[2017-07-01 10:18] VITALS: BMI 29.2
[2017-07-01] MEDS: Lactated Ringer's 1,000 ML IV SCH ×2 (10:20→11:20)
[2017-07-02 11:22] VITALS: BP 94/46; PULSE 71; TEMP 98; O2SAT 100
== END 2017-07-01 12:20 | disposition home or self-care (01) ==
LOC: H.EROB2 09:16 → H.EROB 09:55 → H.EROB2 12:20
DX: O47.1 False labor at or after 37 completed weeks of gestation (principal); Z3A.38 38 weeks gestation of pregnancy; O26.93 Pregnancy related conditions, unspecified, third trimester; R10.2 Pelvic and perineal pain; O09.10 Supervision of pregnancy with history of ectopic pregnancy, unspecified trimester
CPT/HCPCS: 99283; J7120

== ENCOUNTER 2017-07-11 14:28 | Emergency (ER) | payer MEDICAID ==
[2017-07-11 14:43] VITALS: BMI 29.7
[2017-07-11 15:42] LABS: SQUAMOUS EPITHIAL 5 /hpf (0-5); URINE BILIRUBIN NEGATIVE (NEGATIVE); URINE BLOOD NEGATIVE (NEGATIVE); URINE CLARITY CLOUDY (Clear); URINE COLOR AMBER (YELLOW); URINE GLUCOSE (UA) 50 mg/dL (Normal); URINE LEUKOCYTE ESTERASE NEG Leu/uL (Negative); URINE PROTEIN NEGATIVE (NEGATIVE); URINE UROBILINOGEN 0.2-1.0 mg/dL (0.2-1.0)
--- NOTE | 2017-07-11 17:30 | OBDCSUM ---
Datetime: 07/11/2017 17:23 Discharged to, Provider: Home Follow up at, Provider: [facility] Disch Instr Activity: Normal activity Disch Instr Diet: Regular Discharge Instructions, Provider: Routine instructions given Discharge Diagnosis, Provider: False Labor - Undelivered Discharge Time: 07/11/2017 17:23 Follow up in weeks, Provider: 07/15/17 Disch Referrals: None
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
[2017-07-12 00:26] VITALS: BP 133/76; PULSE 74; TEMP 97.8
== END 2017-07-11 17:58 | disposition home or self-care (01) ==
LOC: H.EROB2 14:28
DX: O26.93 Pregnancy related conditions, unspecified, third trimester (principal); R10.2 Pelvic and perineal pain; O47.1 False labor at or after 37 completed weeks of gestation; Z3A.39 39 weeks gestation of pregnancy

== ENCOUNTER 2017-07-12 05:12 | Inpatient (IN) | payer MEDICAID ==
[2017-07-11 14:43] VITALS: BMI 29.7
[2017-07-12] MEDS ORDERED: Lactated Ringer's 1,000 ML IV SCH (05:30)
[2017-07-12] MEDS ORDERED: Oxytocin 30 units/LR 500ML 30 UNITS/500 ML BAG IV ONE (05:31)
[2017-07-12] MEDS ORDERED: Lidocaine 2% Inj (20ml) ONE (05:42)
[2017-07-12 05:52] LABS: BASO # 0.1 K/uL (0.0-0.2); BASO % 0.6 % (0.0-2.0); EOS # 0.3 K/uL (0.0-0.7); EOS % 1.8 % (0.0-4.0); HEMOGLOBIN 11.9 g/dL (12.0-16.0); LYMPH # 3.2 K/uL (1.0-4.3); LYMPH % 19.3 % (20.0-40.0); MEAN CELL VOLUME 86.4 fl (81.0-99.0); MEAN CORPUSCULAR HEMOGLOBIN 28.9 pg (27.0-31.0); MEAN CORPUSCULAR HGB CONC 33.4 g/dL (33.0-37.0); MONO # 1.3 K/uL (0.0-0.8); MONO % 7.6 % (0.0-10.0); NEUT # 11.9 K/uL (1.8-7.0); NEUT % 70.7 % (50.0-75.0); RBC 4.11 Mil/uL (3.80-5.20); RED CELL DISTRIBUTION WIDTH 15.3 % (11.5-14.5); WHITE BLOOD COUNT 16.8 K/uL (4.8-10.8)
[2017-07-12] MEDS ORDERED: Benzocaine/Menthol SPRAY TOP PRN (05:53)
[2017-07-12] MEDS ORDERED: Oxytocin 30 units/LR 500ML 30 U/500 ML BAG IV ONE (05:54)
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
--- NOTE | 2017-07-12 06:20 | OBDS ---
MATERNAL INFORMATION Provider Comments: AROM clear fluid at 05:33am. Pt pushed to deliver a viable female through light meconium w/ a nuchal cord that couldn't be reduced at 05:35 am. Ray Todd, RN deliver ed the baby. Apgars 9 and 9. Wt 7#0.6, 3190 gms. Cord double clamped and pt's mother cut the cord. Cord blood was collected. Placenta delivered spontaneously intact w/ a 3vc at 05:39am. 1% lidocai ne was injected into vagina tissue. First degree tear repaired w/ running locking stitch of 3-0 vicr yl rapide. Pt and baby tolerated the procedure well. EBL 50 mL LABOR SUMMARY EDC: 07/15/2017 00:00 LABOR INFORMATION Onset of Labor: 07/11/2017 18:00 Group B Beta Strep: Negative (Annotations: 06/25/2017)
[2017-07-13 07:45] LABS: BASO # 0.1 K/uL (0.0-0.2); BASO % 0.6 % (0.0-2.0); EOS # 0.4 K/uL (0.0-0.7); EOS % 2.9 % (0.0-4.0); HEMOGLOBIN 11.5 g/dL (12.0-16.0); LYMPH # 3.3 K/uL (1.0-4.3); LYMPH % 24.5 % (20.0-40.0); MEAN CORPUSCULAR HEMOGLOBIN 29.3 pg (27.0-31.0); MEAN CORPUSCULAR HGB CONC 33.3 g/dL (33.0-37.0); MEAN PLATELET VOLUME 9.1 fl (7.2-11.7); MONO % 7.7 % (0.0-10.0); NEUT # 8.7 K/uL (1.8-7.0); NEUT % 64.3 % (50.0-75.0); NRBC % 0.1 % (0.0-0.0); RBC 3.92 Mil/uL (3.80-5.20); RED CELL DISTRIBUTION WIDTH 15.2 % (11.5-14.5); WHITE BLOOD COUNT 13.5 K/uL (4.8-10.8)
[2017-07-13] MEDS: Lansinoh for Breast Feeding Mothers TP SCH ×2 (08:19→16:45)
--- NOTE | 2017-07-13 10:42 | OBPPN ---
Datetime: 07/13/2017 05:53 PP Pain Prov: Within normal limits PP Nausea Prov: Denies PP Flatus Prov: Yes PP BM Prov: No PP Breasts Prov: Not Done PP Heart Prov: Normal PP Lungs Prov: Normal PP Abdomen/Uterus Prov: Normal PP Lochia Prov: Normal PP Vulva/Perineum Prov: Normal PP CVA Tenderness Prov: Not Done PP Extremities Prov: Normal PP C/S Incision Prov: Not Applicable PP Progress Prov: Normal PP Impression Prov: Normal progression PP Plan Prov: Continue present management PP Progress Note Prov: S: 37 YO PPD1, s/p NVD. Pt is seen and examined this AM, grandmother by bedside with baby. No acute overnight events. Pt is endorsing mild pelvic cramping but pain is wel l controlled with motrin. Pt is ambulating around the room without any difficulties. VB is heavier t hen periods but has decreased since delivery. Tolerating PO diet. No BM yet, but passing flatus. Had blurry vision 1x yesterday evening but attributes it to her fatigue (no sleep 2 days). Endorsing some dryness in her nipples. Denies chest pain, dyspnea, n/v, fever/chills, diarrhea, nausea/vomiting, an d calf pain. O: VS: wnl, afebrile GEN: Awake, alert and NAD HEENT: EOMI, moist mucosa. LUNGS: CTA B/L, no wheezing, rhonci, or rales CVS: RRR, S1,S2 no murmurs ABD: ND, +BS, soft abdomen, firm fundus @ umbilical level. EXT: No edema, neg calf tenderness NEURO/PSYCHI: AAOx3, no grossly focal deficit, preserved affect and mood. Assessment/Plan: 37 YO PPD1, s/p NVD on 07/12/17. Gave to a healthy baby girl. Pt martha ins afebrile, tolerating pain with medication, good PO intake and urinating without any difficulties. Doing well on PPD1. -C/w regular diet as tolerated. -OOB with caution SCDs for DVT prophylaxis -C/w Percocet 5/325 mg and Ibuprofen 600 mg for pain prn -C/w Colace 100mg PO BID -lanolin topical -Encourage and ambulating. Consuelo Nj, PGY I ob attending addendum pt seen _ examined by me. agree w/ above assessment and plan. Vital Signs Provider PP: Reviewed; Within Normal Limits
[2017-07-14] MEDS: Lansinoh for Breast Feeding Mothers TP SCH (08:34)
--- NOTE | 2017-07-14 11:25 | OBDCSUM ---
Datetime: 07/14/2017 06:41 Discharged to, Provider: Home Follow up at, Provider: [facility] Disch Instr Activity: Normal activity; May be up to bathroom; May be up for meals; May Shower Disch Instr Diet: Regular Discharge Instructions, Provider: Routine instructions given Discharge Diagnosis, Provider: Term Delivered Discharge Time: 07/14/2017 12:00 Follow up in weeks, Provider: 6 weeks Disch Referrals: None Contraception discussed, Prov: Yes Disch Activity Restrictions: No exercising; No lifting; No driving; Minimize stair-climbing; No sexu al activity; Nothing in vagina - [place], tampons, douche Discharge Comment, Provider: 37 YO PPD2, s/p NVD, gave to a baby girl, 39.4wks IUP, on 07/12/17 @ 5:35AM. of 9/9 and weight of 3190g. No complications during the post- period. P t is tolerating PO diet, pain is well controlled, and ambulating without difficulties. Doing well PPD day 2. Discharge Instructions: 1.Encourage and ambulation 2.PNV 1 tab po daily 3.Ibuprofen 600mg 1 tab prn for mild-mod pain and Colace for constipation. 4.ER precautions: If excessive bleeding or fever without relief from medication, go to ED 5.F/U in [facility] in 6 wks for PP visit and follow up in 2-3 days for baby. Consuelo Nj, PGY I OB Hospitalist note: Pt seen on rounds this AM. Agree with PGY1 note. MAHNDO Contraception after Delivery: Undecided
--- NOTE | 2017-07-14 11:25 | OBPPN ---
Datetime: 07/14/2017 06:39 PP Pain Prov: Within normal limits PP Nausea Prov: Denies PP Flatus Prov: Yes PP BM Prov: Yes PP Breasts Prov: Normal PP Heart Prov: Normal PP Lungs Prov: Normal PP Abdomen/Uterus Prov: Normal PP Lochia Prov: Normal PP Vulva/Perineum Prov: Normal PP CVA Tenderness Prov: Not Done PP Extremities Prov: Normal PP C/S Incision Prov: Not Applicable PP Progress Prov: Normal PP Impression Prov: Normal progression PP Plan Prov: Continue present management; Discharge PP Progress Note Prov: S: 37 YO PPD2, s/p NVD. Pt is seen and examined this AM. No acute ove rnight events. Pt states that pain is better today, minimal pain with ambulation. Pt is ambulating wi thout any difficulties. Bleeding has improved, like menses now. Tolerating PO diet. + BM and passing flatus. Denies chest pain, dyspnea, n/v, fever/chills, diarrhea, nausea/vomiting, and calf pain. O: VS: wnl, afebrile GEN: Awake, alert. NAD HEENT: EOMI, moist mucosa. LUNGS: CTA B/L, no wheezing, rhonci, or rales CVS: RRR, S1,S2 no murmurs ABD: ND, +BS, soft abdomen, firm fundus, below umbilicus. EXT: No edema, neg calf tenderness NEURO/PSYCHI: AAOx3, no grossly focal deficit, preserved affect and mood. Assessment/Plan: 37 YO PPD2, s/p NVD. Pt remains afebrile, tolerating pain with medication , good PO intake and urinating without any difficulties. Doing well on PPD2. -C/w regular diet as tolerated. -OOB with caution SCDs for DVT prophylaxis -C/w Percocet 5/325 mg and Ibuprofen 600 mg for pain prn -C/w Colace 100mg PO BID -Encourage and ambulating -will d/c pt home today -pp follow up in 6 weeks for PP visit and follow up for baby in 2-3 days Consuelo Nj, PGY I OB Hospitalist note: Pt seen on rounds this AM. Agree with PGY1 note. MAHNDO discharge home Vital Signs Provider PP: Reviewed; Within Normal Limits
[2017-07-14 18:19] VITALS: BP 116/73; PULSE 84; RESP 20; TEMP 98
== END 2017-07-14 14:10 | disposition home or self-care (01) | DRG 373 ==
LOC: H.EROB2 05:12 → H.L&D 05:29 → H.EROB 05:31 → H.EROB2 05:34 → H.OB/GYN 09:00
PROVIDERS: ADMIT Obstetrics & Gynecology; ATTEND Obstetrics & Gynecology
PROC: 10E0XZZ Delivery of Products of Conception, External Approach (ICD-10-PCS; principal; 2017-07-12)
PROC: 0HQ9XZZ Repair Perineum Skin, External Approach (ICD-10-PCS; 2017-07-12)
PROC: 10907ZC Drainage of Amniotic Fluid, Therapeutic from Products of Conception, Via Natural or Artificial Opening (ICD-10-PCS; 2017-07-12)
PROC: 4A1HXCZ Monitoring of Products of Conception, Cardiac Rate, External Approach (ICD-10-PCS; 2017-07-12)
DX: O69.81X0 Labor and delivery complicated by cord around neck, without compression, not applicable or unspecified (principal); O70.0 First degree perineal laceration during delivery; O99.52 Diseases of the respiratory system complicating childbirth; J45.909 Unspecified asthma, uncomplicated; O99.343 Other mental disorders complicating pregnancy, third trimester; Z3A.39 39 weeks gestation of pregnancy; Z37.0 Single live birth; O09.523 Supervision of elderly multigravida, third trimester

== ENCOUNTER 2017-11-05 23:30 | Emergency (ER) | payer SELFPAY ==
[2017-11-05 23:30] VITALS: BMI 29.7
[2017-11-05 23:53] VITALS: BP 114/65; PULSE 67; RESP 18; TEMP 98.2; O2SAT 98
--- NOTE | 2017-11-05 23:58 | ED PDOC ---
HPI: General Adult Time Seen by Provider: 11/05/17 23:58 Chief Complaint (Nursing): Breast Problem Chief Complaint (Provider): breast pain History Per: Patient Additional Complaint(s): 37-year-old female presents with pain, redness and swelling to right breast 2 days. Patient is currently breast-feeding her 3-month-old daughter. Patient denies fever or chills, no drainage from nipple. She took Tylenol earlier which helped somewhat with pain. PMD: [facility] Past Medical History Reviewed: Historical Data, Nursing Documentation, Vital Signs Vital Signs: Last Vital Signs Temp 98.2 F 11/05/17 23:50 Pulse 67 11/05/17 23:50 Resp 18 11/05/17 23:50 BP 114/65 11/05/17 23:50 Pulse Ox 98 11/05/17 23:58 - Medical History PMH: Asthma - Family History Family History: States: No Known Family Hx - Living Arrangements Living Arrangements: With Family - Social History Current smoker - smoking cessation education provided: No Alcohol: None Drugs: Denies - Home Medications Home Medications: Ambulatory Orders Medication Instructions Recorded 21/Iron Fu/Folic Acid 1 tab PO DAILY 07/01/17 [ Complete Caplet] Docusate [Colace] 100 mg PO BID cap 07/14/17 Ibuprofen [Motrin Tab] 600 mg PO Q6 PRN tab 07/14/17 Cephalexin [Keflex] 500 mg PO TID #21 capsule 11/06/17 - Allergies Allergies/Adverse Reactions: Allergies Allergy/AdvReac Type Severity Reaction Status Date / Time No Known Allergies Allergy Verified 09/16/16 07:47 Review of Systems ROS Statement: Except As Marked, All Systems Reviewed And Found Negative Constitutional: Negative for: Fever, Chills Gastrointestinal: Negative for: Nausea, Vomiting Skin: Positive for: Other (pain and swelling to right breast) Physical Exam - Reviewed Nursing Documentation Reviewed: Yes Vital Signs Reviewed: Yes - Physical Exam Appears: Positive for: Well, Non-toxic, No Acute Distress Skin: Positive for: Normal Color. Negative for: Rash Eye Exam: Positive for: Normal appearance Cardiovascular/Chest: Positive for: Regular Rate, Rhythm, Other (Erythema and tenderness noted to right breast areola region, no discrete abscess noted, no active drainage, tenderness and erythema noted to right nipple, left breast wnl) Respiratory: Positive for: Normal Breath Sounds Extremity: Positive for: Normal ROM Neurologic/Psych: Positive for: Alert, Oriented - ECG O2 Sat by Pulse Oximetry: 98 Pulse Ox Interpretation: Normal Medical Decision Making Medical Decision Makin37 year old with right breast mastitis Plan: Motrin dose in ED Initial dose of Keflex Patient advised to continue with NSAIDs for pain and apply warm compresses to affected area. Prescription for Keflex given. Patient advised to continue breast -feeding and follow-up with clinic in 2-3 days. She was instructed to return to ED at any time if acutely worse. Disposition - Clinical Impression Clinical Impression: Mastitis - Patient ED Disposition Is Patient to be Admitted: No Counseled Patient/Family Regarding: Diagnosis, Need For Followup, Rx Given - Disposition Referrals: Quintin De La O MD [Primary Care Provider] - [facility] [Outside] Disposition: Routine/Home Disposition Time: 00:38 Condition: STABLE Additional Instructions: Tylenol or Motrin for pain as needed. Take antibiotics as directed. Continue breast-feeding. Warm compresses to affected area for soothing relief. Follow-up with clinic in 2-3 days or return to ED any time if acutely worse. Prescriptions: Cephalexin [Keflex] 500 mg PO TID #21 capsule Instructions: Mastitis (DC) Forms: [employer] ([place]se)
== END 2017-11-06 00:58 | disposition home or self-care (01) ==
LOC: H.ER 23:30
DX: N64.4 Mastodynia (principal)